=== PATIENT | female | born 1955 | race Caucasian/White ===

== ENCOUNTER → 2022-09-30 | Outpatient (CLI) | payer MEDICARE, BC ==
[~2022-09-30] MED LIST: REGADENOSON 0.4 MG/5 ML SYR IV ONE
== END ==
LOC: NM 07:59
PROVIDERS: ATTEND Internal Medicine Cardiovascular Disease
DX: R07.9 Chest pain, unspecified (principal); I10 Essential (primary) hypertension; I34.1 Nonrheumatic mitral (valve) prolapse
CPT/HCPCS: 71046; 77067; 78452; 93017; A9502; J2785

== ENCOUNTER → 2022-10-15 | Outpatient (CLI) | payer MEDICARE, BC | LOC: MAMMO 08:42 | PROVIDERS: ATTEND Internal Medicine Cardiovascular Disease | DX: R92.1 Mammographic calcification found on diagnostic imaging of breast (principal) | CPT/HCPCS: 77066 ==